=== PATIENT | male | born 1995 | race Caucasian/White ===

== ENCOUNTER 2016-10-14 07:56 | Day surgery (SDC) | payer OTHER ==
[2016-10-13 13:20] VITALS: Ht 165.1 cm; Wt 58.0 kg
[~2016-10-14] VITALS: Ht 165.1 cm; Wt 58.0 kg
[2016-10-14] VITALS (18 sets, daily range): BP systolic 83–118; BP diastolic 37–65; PULSE 60–86; RESP 9–20
[~2016-10-14 07:56] MED LIST: CEFAZOLIN 1 GM/50 ML (PMX) 50 ML IVPB ONE; DEXAMETHASONE 4 MG/ML 1 ML INJ ONE; LIDOCAINE 2% (SDV) 5 ML INJ ONE; MIDAZOLAM 1 MG/ML 2 ML INJ ONE; ONDANSETRON 4 MG INJ ONE; PROPOFOL 0 ML ONE
[2016-10-14] MEDS ORDERED: CEFAZOLIN 1 GM/50 ML (PMX) 50 ML IVPB ONE (09:00)
[2016-10-14 09:08] LABS: ADD SCAN DIFF NO
[2016-10-14 09:12] LABS: BASOPHIL # 0.1 10^3/ul (0.0-0.1); BASOPHILS % 0.7 % (0.0-2.0); EOSINOPHILS # 0.3 10^3/ul (0.0-0.5); EOSINOPHILS % 4.5 % (0.0-7.0); HEMATOCRIT 45.7 % (42.0-52.0); HEMOGLOBIN 16.1 g/dl (14.0-18.0); LYMPHOCYTES # 2.2 10^3/ul (0.8-2.9); LYMPHOCYTES % 30.8 % (15.0-51.0); MEAN CORPUSCULAR HEMOGLOBIN 32.3 pg (29.0-33.0); MEAN CORPUSCULAR HGB CONC 35.2 g/dl (32.0-37.0); MEAN CORPUSCULAR VOLUME 91.8 fl (82.0-101.0); MEAN PLATELET VOLUME 9.6 fl (7.4-10.4); MONOCYTE # 0.7 10^3/ul (0.3-0.9); MONOCYTES % 9.6 % (0.0-11.0); NEUTROPHIL # 3.9 10^3/ul (1.6-7.5); NEUTROPHILS % 54.3 % (39.0-77.0); PLATELET COUNT 251 10^3/UL (140-415); RED BLOOD COUNT 4.98 10^6/ul (4.70-6.10); RED CELL DISTRIBUTION WIDTH 12.5 % (11.5-14.5); WHITE BLOOD COUNT 7.1 10^3/ul (4.8-10.8)
[2016-10-14 09:32] LABS: INR 1.06; PROTIME 13.8 Sec (12.2-14.2); PT RATIO 1.1
[2016-10-14 09:37] LABS: ALBUMIN 4.5 g/dl (3.3-4.9); ALBUMIN/GLOBULIN RATIO 1.5; BILIRUBIN,INDIRECT 1.8 mg/dl (0-1.1); BILIRUBIN,TOTAL 1.8 mg/dl (0.2-1.3); TOTAL PROTEIN 7.5 g/dl (6.1-8.1)
[2016-10-14] MEDS ORDERED: MIDAZOLAM 1 MG/ML 2 ML INJ ONE (09:38)
[2016-10-14] MEDS ORDERED: FENTAnyl 50 MCG/ML VIAL ONE (09:38)
[2016-10-14] MEDS ORDERED: PROPOFOL 20 ML ONE (09:38)
[2016-10-14 09:43] LABS: CALCIUM 9.2 mg/dl (8.4-10.2); CREATININE 0.84 mg/dl (0.61-1.24); POTASSIUM 3.5 mmol/L (3.5-5.1)
[2016-10-14] MEDS ORDERED: BUPIVACAINE 0.25% (MPF) 30 ML INJ ONE (09:59)
[2016-10-14] MEDS ORDERED: METOCLOPRAMIDE 10 MG INJ IV PRN (10:00)
[2016-10-14] MEDS ORDERED: morphine (1 MG/ML) 10ML SYRINGE IV PRN ×2 (10:00)
[2016-10-14] MEDS ORDERED: FENTAnyl 50 MCG/ML VIAL IV PRN ×2 (10:00)
[2016-10-14] MEDS ORDERED: ONDANSETRON 4 MG INJ IV PRN (10:00)
[2016-10-14] MEDS ORDERED: OXYCODONE/ACETAMINOPHEN (5/325) TAB PO PRN (10:00)
--- NOTE | 2016-10-14 10:05 | HP ---
DATE OF ADMISSION: 10/14/2016 HISTORY OF PRESENT ILLNESS: Chinedu Cortez is a 21-year-old with phimosis and inability to retra ct his foreskin. The foreskin is painful, and thus he presents for an elective circumcision. PAST MEDICAL HISTORY: Phimosis. PAST SURGICAL HISTORY: None. MEDICATIONS: None. ALLERGIES: NONE. PHYSICAL EXAMINATION: LUNGS: Clear breath sounds bilaterally. HEART: Regular rate and rhythm. ABDOMEN: Soft, nondistended, nontender, no palpable masses. BACK: No CVA tenderness, no masses. GENITALIA: Dense phimosis of the foreskin is appreciated. He is not circumcised. The remaining po rtions of the shaft of the penis are within normal limits. The scrotum is within normal limits. Te sticles and epididymis descended bilaterally and within normal limits. IMPRESSION: Phimosis. PLAN: Circumcision. How the procedure was performed, potential complications, side effects, and ri sks including but not limited to damage to the urethra, shaft of penis, glans penis, infection, bloo d loss, anesthetic risks, DVT, PE, NH, gonzalez and postoperative course, potential for staged intervent ional all reviewed. He understands the above and would like to proceed. All questions answered. Dictated By: ROBYN JOYNER/SOPHIA Conf#: [id number] DID#: [id number]
[2016-10-14] MEDS ORDERED: CEFAZOLIN 1 GM INJ ONE (10:27)
[2016-10-14] MEDS ORDERED: DEXAMETHASONE 4 MG/ML 1 ML INJ ONE (10:28)
[2016-10-14] MEDS ORDERED: ONDANSETRON 4 MG INJ ONE (10:28)
[2016-10-14] MEDS ORDERED: KETOROLAC 30 MG INJ ONE (10:28)
[2016-10-14] MEDS ORDERED: METOCLOPRAMIDE 10 MG INJ ONE (10:28)
--- NOTE | 2016-10-14 11:16 | PDOCDIS ---
Discharge Instructions CONDITION Patient Condition: Good HOME CARE INSTRUCTIONS: Diet Instructions: Reduced Calorie ACTIVITY: Activity Restrictions: Slowly Increase Activity FOLLOW UP/APPOINTMENTS Appointments Monday REFERRALS Other Referrals dc to home when awake and stable. does not need to void before discharge. SCHOOL/WORK RELEASE May return to School/Work on: October 24, 2016 ROBYN ROMERO October 14, 2016 11:16
--- NOTE | 2016-10-14 11:47 | OPR ---
DATE OF OPERATION: HISTORY: Chinedu Cortez is a 21-year-old male with significant phimosis, requesting circumcision . PREOPERATIVE DIAGNOSIS: Phimosis. POSTOPERATIVE DIAGNOSIS: Phimosis. OPERATION PERFORMED: Circumcision phalloplasty. SURGEON: Robyn Kaplan MD ANESTHESIA: General. ESTIMATED BLOOD LOSS: 2 mL. COMPLICATIONS: None. DESCRIPTION OF PROCEDURE: The patient was brought into the operating room and placed on the operati ng room table in the supine position. He was prepped and draped in the usual fashion after anesthes ia was induced and a time out was undertaken. Appropriate pressure points were padded and received preoperative antibiotic therapy. Dense phimosis was appreciated. A penile block was obtained utili zing a total of 10 mL of 0.25% Marcaine without epinephrine which was instilled at the base of the p maurizio and in the midline of the inferior pubic region. A circumferential incision was created on the outer aspect of the foreskin utilizing a 15-blade scalpel. This foreskin was unable to be retracte d, and thus, a dorsal slit was created. This then demonstrated that there was dense phimosis on the inner aspect of the foreskin proximal to the glans penis. This was subsequently released. A circu mferential incision was created under the sulcus of the penis which allowed for release of the secon nathan phimotic region. The redundant and phimotic foreskin was then removed en bloc. A redundant fr enulum was additionally noted which incorporated into the phimotic tissue. Pinpoint hemostasis was obtained. At this point, the glans penis was then reconstructed with interrupted 3-0 Vicryl sutures . This allowed for baptism of the glans penis. The newly opposing edges of the foreskin were t hen reapproximated with interrupted 3-0 Vicryl sutures. Excellent baptism of the shaft of penis and glans penis was appreciated. Throughout the entire case the urethra was well preserved. Steri lized gauze and loosely placed Coban was applied to the penis. He was transferred to recovery room in stable condition and will be discharged to home on [facility] 5/325 one to two tabs p.o. q.4 hours, di spense #30, no refill. He will follow up in the office in the beginning of next week for removal of dressing and further care. Routine instructions discussed. Dictated By: ROBYN JOYNER/NTS Conf#: [id number] DID#: [id number]
== END 2016-10-14 12:52 | disposition home or self-care (01) ==
LOC: SDS 07:56
PROVIDERS: ATTEND Urology
DX: N47.1 Phimosis (principal); N47.7 Other inflammatory diseases of prepuce
CPT/HCPCS: 54161; 80053; 85025; 85610; 85651; 85730; 88304; J0690; J1100; J1885; J2250; J2405; J2765; J3010; Z7512; Z7610